=== PATIENT | male | born 1990 | race Caucasian/White ===

== ENCOUNTER 2018-05-05 10:48 | Emergency (ER) | payer OTHER ==
[~2018-05-05] VITALS: Ht 162.6 cm; Wt 54.4 kg
[2018-05-05 12:17] LABS: ABSOLUTE BASOPHIL COUNT 0 /CUMM (0.0-0.2); ABSOLUTE EOSINOPHIL COUNT 0.2 /CUMM (0.0-0.7); ABSOLUTE LYMPH COUNT 2.6 /CUMM (1.2-3.4); ABSOLUTE MONOCYTE COUNT 0.6 /CUMM (0.10-0.60); BASOPHIL % 0.4 % (0.0-2.0); EOSINOPHIL % 2.5 % (0-5); GRANULOCYTE % 59.3 % (42.2-75.2); HEMATOCRIT 48.5 % (42-52); MEAN CORPUSCULAR HGB 29.1 PG (27.0-31.0); MEAN CORPUSCULAR HGB CONC 33.8 G/DL (33.0-37.0); MEAN CORPUSCULAR VOLUME 85.9 FL (80.0-94.0); MEAN PLATELET VOLUME 7.9 FL (7.4-10.4); PLATELET COUNT 278 /CUMM (130-400); RBC DISTRIBUTION WIDTH 13.1 % (11.5-14.5); RED BLOOD CELL CT 5.65 /CUMM (4.70-6.10); WHITE BLOOD CELL COUNT 8.4 /CUMM (4.8-10.8)
--- NOTE | 2018-05-05 14:45 | CT SCAN REPORT ---
EXAMINATION: CT ABDOMEN AND PELVIS WITH CONTRAST CLINICAL INFORMATION: Left-sided pelvic pain and swelling COMPARISON: 01/10/2011 TECHNIQUE: Multidetector volumetric imaging was performed of the abdomen and pelvis following IV administration of 95 mL of Optiray 320 intravenous contrast. Sagittal and coronal reformatted images were obtained on the technologist's workstation. DLP: 246.63 mGy-cm FINDINGS: LUNG BASES: The visualized lung bases are unremarkable. LIVER, GALLBLADDER, AND BILIARY TREE: The liver is normal in size, shape, and attenuation. No focal hepatic lesion or biliary ductal dilatation is present. The gallbladder is unremarkable with no evidence of radiopaque gallstones, gallbladder wall thickening, or obvious pericholecystic inflammatory changes. PANCREAS: Unremarkable. SPLEEN: Unremarkable. ADRENAL GLANDS: Unremarkable. KIDNEYS AND URETERS: The kidneys are normal in size, shape, and attenuation. No hydronephrosis, hydroureter, or calculi seen. There is an extrarenal pelvis on the left. No perinephric stranding. BLADDER: Unremarkable. GASTROINTESTINAL TRACT: The small and large bowel are unremarkable. The appendix is unremarkable. ABDOMINAL WALL: No significant hernia is appreciated. LYMPH NODES: Normal. VASCULAR: Unremarkable. PELVIC VISCERA: There is a left-sided hydrocele. OSSEOUS STRUCTURES: Unremarkable. IMPRESSION: Left-sided hydrocele is partially included. No inguinal or ventral hernia is appreciated.
--- NOTE | 2018-05-05 17:54 | ULTRASOUND REPORT ---
EXAMINATION: US SCROTUM CLINICAL INFORMATION: Left testicular pain for 4 to 5 days. COMPARISON: CT scan abdomen pelvis 05/05/2018 TECHNIQUE: A sonogram of the scrotum was performed assessing bahena-scale appearance and color Doppler flow. Spectral analysis and Doppler interrogation was performed. FINDINGS: RIGHT: Right testicle measures 5.2 x 2.7 x 3 cm, volume 29.9 mL. Parenchymal echotexture is normal. No focal testicular parenchymal lesions are visualized. Normal arterial and venous intratesticular flow is visualized. Right epididymal head is normal in size. No right hydrocele or varicocele is seen. LEFT: Left testicle measures 5 x 2 x 3.4 cm, volume 24.1 mL. Parenchymal echotexture is normal. No focal testicular parenchymal lesions are visualized. Normal arterial and venous intratesticular flow is visualized. Left epididymal head is normal in size. No left hydrocele or varicocele is seen. There is question of a left-sided hydrocele on the CAT scan performed today. The hypodensity on the CT scan in the left scrotal sac is the left testicle. IMPRESSION: Normal.
--- NOTE | 2018-05-05 17:57 | ED GI/GU/ABDOMINAL COMPLAINT ---
History of Present Illness General Chief Complaint: General Adult Stated Complaint: PELVIC PAIN Source: patient Exam Limitations: no limitations Vital Signs & Intake/Output Vital Signs & Intake/Output Vital Signs Date Time Temp Pulse Resp B/P B/P Pulse O2 O2 Flow FiO2 Mean Ox Delivery Rate 05/05 1604 97.0 68 18 126/78 98 Room Air 05/05 1131 96.6 71 18 134/71 97 Room Air Allergies Coded Allergies: ibuprofen (Severe, THROAT SWELLS 05/05/18) beeswax (UNKNOWN 05/05/18) Triage Note: 28 DAYS. REPORTS DIFFUSE ABDOMINAL PAIN. +INTERMITTENT NAUSEA. DENIES VOMITING. DENIES URINARY SYMPTOMS OTHER THAN URINATING MORE FREQUENTLY THAN USUAL. AFEBRILE. Triage Nurses Notes Reviewed? yes Onset: Abrupt Duration: day(s): (4), changing over time, continues in ED, getting worse Timing: single episode today Quality/Severity: cramping Severity Numbers: 5 Location: groin (left) Radiation: no radiation Activities at Onset: none Prior Abdominal Problems: none Sexually Active: Yes No Modifying Factors: none HPI: 27-year-old male with no medical history presents for evaluation of left groin pain. Patient reports he has noticed a palpable lump in the left inguinal area for the past 3 or 4 days. Feels like it is becoming more painful and getting larger. He reports that the pain is radiating into his left lower abdomen. He denies any penile discharge penile lesions dysuria. He does admit to some urinary frequency. No urgency. No back pain fever rashes no testicular pain. Past History Travel History Traveled to [place] past 21 day No Medical History Any Pertinent Medical History? see below for history Neurological: NONE EENT: NONE Cardiovascular: NONE Respiratory: NONE Gastrointestinal: NONE Hepatic: NONE Renal: NONE Musculoskeletal: NONE Psychiatric: NONE Endocrine: NONE Blood Disorders: NONE Cancer(s): NONE ADMINISTRATIVE VOLUNTEER/Reproductive: NONE Tetanus Vaccine: 10/28/11 Surgical History Surgical History: non-contributory Psychosocial History What is your primary language Welsh Tobacco Use: Quit >30 days ago Family History Hx Contributory? No Review of Systems Review of Systems Constitutional: Reports: no symptoms. EENTM: Reports: no symptoms. Respiratory: Reports: no symptoms. Cardiovascular: Reports: no symptoms. GI: Reports: see HPI, abdominal pain. Genitourinary: Reports: see HPI, frequency. Musculoskeletal: Reports: no symptoms. Skin: Reports: no symptoms. Neurological/Psychological: Reports: no symptoms. Hematologic/Endocrine: Reports: no symptoms. Immunologic/Allergic: Reports: no symptoms. All Other Systems: Reviewed and Negative Physical Exam Physical Exam General Appearance: well developed/nourished, no apparent distress, alert, awake Head: atraumatic, normal appearance Eyes: Bilateral: normal appearance, PERRL, EOMI. Ears, Nose, Throat, Mouth: moist mucous membrane Neck: normal inspection, supple, full range of motion Respiratory: normal breath sounds, chest non-tender, no respiratory distress, lungs clear Cardiovascular: regular rate/rhythm, normal peripheral pulses Peripheral Pulses: 2+ radial (R), 2+ radial (L) Gastrointestinal: normal bowel sounds, soft, no organomegaly, there is a single less than 1 cm diameter palpable lymphnode located in the left inguinal area. there is tenderness to palpation to the llq anbd suprapubic area. no swelling or erythema. no additional nodes Male Genitals: normal genitalia, no testicular masses, swelling or tednerenss Back: normal inspection, normal range of motion, no vertebral tenderness, no cvat Extremities: normal range of motion Neurologic/Psych: no motor/sensory deficits, awake, alert, oriented x 3, normal gait Skin: intact, normal color, warm/dry Core Measures ACS in differential dx? No Sepsis Present: No Sepsis Focused Exam Completed? No Progress Differential Diagnosis: appendicitis, biliary colic, epididymitis, orchitis, prostatitis, STD, testicular torsion, ureterolithiasis, urinary retention, urethritis, UTI/pyelo Plan of Care: Orders Procedure Date/time Status CHLAMYDIA-GC DNA PROBE 05/05 1135 Active URINALYSIS 05/05 1135 Complete COMPREHENSIVE METABOLIC PANEL 05/05 1135 Complete CBC WITHOUT DIFFERENTIAL 05/05 1135 Complete Laboratory Tests 05/05/18 1209: Anion Gap 8, Estimated GFR > 60, BUN/Creatinine Ratio 28.6 H, Glucose 77, Calcium 9.9, Total Bilirubin 1.4 H, AST 24, ALT 25, Alkaline Phosphatase 45, Total Protein 7.6, Albumin 4.9, Globulin 2.7, Albumin/Globulin Ratio 1.8, CBC w Diff NO MAN DIFF REQ, RBC 5.65, MCV 85.9, MCH 29.1, MCHC 33.8, RDW 13.1, MPV 7.9 , Gran % 59.3, Lymphocytes % 31.2, Monocytes % 6.6, Eosinophils % 2.5, Basophils % 0.4, Absolute Granulocytes 5.0, Absolute Lymphocytes 2.6, Absolute Monocytes 0.6, Absolute Eosinophils 0.2, Absolute Basophils 0 05/05/18 1200: Urinalysis MANY H, Urine Color YEL, Urine Clarity CLDY H, Urine pH 7.0, Ur Specific Rock 1.020, Urine Protein 100 H, Urine Ketones NEG, Urine Nitrite NEG, Urine Bilirubin NEG, Urine Urobilinogen 0.2, Ur Leukocyte Esterase NEG, Ur Microscopic SEDIMENT EXAMINED, Urine WBC RARE, Urine Mucus FEW, Urine Hemoglobin NEG, Urine Glucose NEG Microbiology 05/05 1200 URINE ROUT: GC DNA Probe - RECD 05/05 1200 URINE ROUT: Chlamydia DNA Probe (ELISSA) - RECD Patient is here for evaluation of left pelvic and groin pain that has been present for the past 3 or 4 days. He does have a single small palpable lymph node in the left inguinal area. Urine is not showing any signs of infection. Blood work is unremarkable. A CT scan of the abdomen and pelvis shows a possible small left-sided hydrocele. A testicular ultrasound was obtained and is completely normal. Patient was instructed symptomatic treatment. Gonorrhea chlamydia testing was ordered empiric treatment was held off for now. Advised patient to follow-up with his primary care doctor discussed return precautions patient agrees with plan Diagnostic Imaging: Viewed by Me: CT Scan, Ultrasound. Discussed w/RAD: CT Scan, Ultrasound. Radiology Impression: PATIENT: RANDA GTZ PRESENT AGE: 27 PATIENT ACCOUNT NO: [id number] : 89 LOCATION: [facility] ORDERING PHYSICIAN: Sylvain KENYON SERVICE DATE: 05/05/18-2645 EXAM TYPE: US - US- TESTICULAR EXAMINATION: US SCROTUM CLINICAL INFORMATION: Left testicular pain for 4 to 5 days. COMPARISON: CT scan abdomen pelvis 05/05/2018 TECHNIQUE: A sonogram of the scrotum was performed assessing bahena-scale appearance and color Doppler flow. Spectral analysis and Doppler interrogation was performed. FINDINGS: RIGHT: Right testicle measures 5.2 x 2.7 x 3 cm, volume 29.9 mL. Parenchymal echotexture is normal. No focal testicular parenchymal lesions are visualized. Normal arterial and venous intratesticular flow is visualized. Right epididymal head is normal in size. No right hydrocele or varicocele is seen. LEFT: Left testicle measures 5 x 2 x 3.4 cm, volume 24.1 mL. Parenchymal echotexture is normal. No focal testicular parenchymal lesions are visualized. Normal arterial and venous intratesticular flow is visualized. Left epididymal head is normal in size. No left hydrocele or varicocele is seen. There is question of a left-sided hydrocele on the CAT scan performed today. The hypodensity on the CT scan in the left scrotal sac is the left testicle. IMPRESSION: Normal. DICTATED BY: Angel Luis Springer MD DATE/TIME DICTATED:05/05/181748 SERVICE NOW DEVELOPER:LINDA DATE/TIME TRANSCRIBED:05/05/181748 CONFIDENTIAL, DO NOT COPY WITHOUT APPROPRIATE AUTHORIZATION. <Electronically signed in Other Vendor System> SIGNED BY: Angel Luis Springer MD 05/05/181753, PATIENT: RANDA GTZ PRESENT AGE: 27 PATIENT ACCOUNT NO: [id number] : 89 LOCATION: [facility] ORDERING PHYSICIAN: Sylvain KENYON SERVICE DATE: 05/05/18 EXAM TYPE: CAT - CT ABD & PELVIS W IV CONTRAST EXAMINATION: CT ABDOMEN AND PELVIS WITH CONTRAST CLINICAL INFORMATION: Left- sided pelvic pain and swelling COMPARISON: 01/10/2011 TECHNIQUE: Multidetector volumetric imaging was performed of the abdomen and pelvis following IV administration of 95 mL of Optiray 320 intravenous contrast. Sagittal and coronal reformatted images were obtained on the technologist's workstation. DLP: 246.63 mGy-cm FINDINGS: LUNG BASES: The visualized lung bases are unremarkable. LIVER, GALLBLADDER, AND BILIARY TREE: The liver is normal in size, shape, and attenuation. No focal hepatic lesion or biliary ductal dilatation is present. The gallbladder is unremarkable with no evidence of radiopaque gallstones, gallbladder wall thickening, or obvious pericholecystic inflammatory changes. PANCREAS: Unremarkable. SPLEEN: Unremarkable. ADRENAL GLANDS: Unremarkable. KIDNEYS AND URETERS: The kidneys are normal in size, shape, and attenuation. No hydronephrosis, hydroureter, or calculi seen. There is an extrarenal pelvis on the left. No perinephric stranding. BLADDER: Unremarkable. GASTROINTESTINAL TRACT: The small and large bowel are unremarkable. The appendix is unremarkable. ABDOMINAL WALL: No significant hernia is appreciated. LYMPH NODES: Normal. VASCULAR: Unremarkable. PELVIC VISCERA: There is a left-sided hydrocele. OSSEOUS STRUCTURES: Unremarkable. IMPRESSION: Left-sided hydrocele is partially included. No inguinal or ventral hernia is appreciated. DICTATED BY: Reema Ahumada MD DATE/TIME DICTATED:05/05/181435 SERVICE NOW DEVELOPER:LINDA DATE/ TIME TRANSCRIBED:05/05/181435 CONFIDENTIAL, DO NOT COPY WITHOUT APPROPRIATE AUTHORIZATION. <Electronically signed in Other Vendor System> SIGNED BY: Reema Ahumada MD 05/05/18 9531 Initial ED EKG: none Departure Departure Disposition: HOME OR SELF CARE Condition: Stable Clinical Impression Primary Impression: Left groin pain Referrals: Patient Has No Primary Care Dr (PCP/Family) Additional Instructions: Rest, avoid heavy lifting bending or excessive physical activity. Tylenol and ibuprofen as needed for pain. MONIOTR YOUR SYMPTOMS RETURN WITH ANY CONCERNS. MAKE A FOLLOW UP APPT WITH ONE OF THE PROVIDED PRIMARY CARE DOCTOR Departure Forms: Customer Survey General Discharge Information
[2018-05-05 18:24] VITALS: BP 107/66
== END 2018-05-05 18:29 ==
LOC: ERH 10:48
PROVIDERS: Physician Assistant Medical
DX: R10.32 Left lower quadrant pain (principal); Z87.891 Personal history of nicotine dependence
CPT/HCPCS: 74177; 81001; 87491; 87591